=== PATIENT | female | born 1985 | race African-American/Black ===

== ENCOUNTER 2018-09-24 07:00 | Inpatient (IN) ==
[2018-09-24] MEDS ORDERED: FAMOTIDINE 20 MG/2 ML VIAL IV ONE (07:28)
[2018-09-24] MEDS ORDERED: ceFAZolin 2,000 MG in PREMIX 1 EACH IV ONE (07:28)
[2018-09-24] MEDS ORDERED: CITRIC ACID/SODIUM CITRATE 30 ML UDCUP PO ONE (07:28)
[2018-09-24] MEDS: LACTATED RINGERS 1,000 ML IV SCH ×2 (07:30→08:43)
[2018-09-24] MEDS ORDERED: OXYTOCIN 10 UNIT/ML VIAL IM ONE (07:46)
[2018-09-24] MEDS ORDERED: OXYTOCIN 30 UNIT in DEXTROSE 5% LACTATED RINGERS 1,000 ML IV ONE (07:46)
[2018-09-24 07:54] LABS: Basophils % 0.3 % (0.0-0.8); Eosinophils # 0.1 10*3/uL (0.0-0.87); Eosinophils % 1.1 % (0.00-10.9); Hematocrit 32.9 VOL% (35.7-47.0); Hemoglobin 10.4 GM/DL (12.0-16.0); Immature Granulocytes % 1.1 %; Immature Granulocytes Absolute 0.07 #; Lymphocytes # 0.9 10*3/uL (1.4-4.0); Lymphocytes % 14.1 % (21.3-54.2); Mean Corpuscular HGB Conc 31.6 GM/DL (32-36); Mean Corpuscular Hemoglobin 28 PG (27-34); Mean Corpuscular Volume 88.7 FL (87-102); Mean Platelet Volume 10.4 FL (9.6-12.0); Monocytes # 0.7 10*3/uL (0.11-0.8); Monocytes % 11.1 % (1.7-12.7); Neutrophils # 4.5 10*3/uL (1.4-7.4); Neutrophils % 72.3 % (38.7-73.9); Platelet Count 271 T/CUMM (130-400); Red Blood Count 3.71 MC/CUMM (3.8-5.5); Red Cell Distribution Width 14.9 % (9.3-17.3); White Blood Count 6.2 T/CUMM (4-12)
[2018-09-24] MEDS ORDERED: OXYTOCIN/LR 30 UNIT/1,000 ML BAG IV ONE (08:00)
[2018-09-24 10:05] LABS: Barbiturates Screen,Urine Negative (Negative); Benzodiazepines Screen,Urine Negative (Negative); Cannabinoid Screen,Urine Negative (Negative); Opiate Screen,Urine Negative (Negative); Phencyclidine Screen,Urine Negative (Negative)
[2018-09-24 10:09] LABS: Apearance,Urine Slightly Hazy (Clear); Bilirubin,Urine Negative (Negative); Blood, Urine Small mg/dL (Negative); Glucose,Urine (UA) Negative (Negative); Ketones,Urine Negative (Negative); Mucus,Urine Occasional /LPF (Occasional); Nitrite,Urine Negative (Negative); Protein,Urine Negative; RBC,Urine 23 /HPF (0-4); Renal Epithelial Cells,Urine Occasional /HPF (<1); Squamous Epithelial Cell,Urine Occasional /HPF (0-10); Urine Color Yellow (Yellow); Urine Specific Gravity 1.016 (1.001-1.035); Urine Urobilinogen < 2.0 EU/DL (0.2-1.0); WBC,Urine 5 /HPF (0-6)
[2018-09-24] MEDS ORDERED: ACETAMINOPHEN 325 MG TABLET PO PRN (10:12)
[2018-09-24] MEDS ORDERED: ONDANSETRON 4 MG/2 ML VIAL IV PRN (10:12)
[2018-09-24] MEDS ORDERED: SIMETHICONE CHEW 80 MG TABLET PO PRN (10:12)
[2018-09-24] MEDS ORDERED: OXYTOCIN/LR 20 UNIT/1,000 ML BAG IV ONE (10:12)
[2018-09-24] MEDS ORDERED: RHO(D) IMMUNE GLOBULIN 300 MCG SYRINGE IM ONE (10:12)
[2018-09-24] MEDS ORDERED: ceFAZolin 1,000 MG in SYRINGE 1 EACH IV SCH (10:30)
[2018-09-24] MEDS ORDERED: LACTATED RINGERS 1,000 ML IV SCH ×2 (10:30→15:30)
[2018-09-24] MEDS ORDERED: PHENYLEPHRINE 1 MG/10 ML SYRINGE IV ONE (10:43)
[2018-09-24] MEDS ORDERED: ONDANSETRON 4 MG/2 ML VIAL ONE (10:43)
[2018-09-24] MEDS ORDERED: MORPHINE 10 MG/10 ML VIAL ONE (10:43)
[2018-09-24] MEDS ORDERED: diphenhydrAMINE 50 MG/1 ML VIAL IV PRN (12:45)
[2018-09-24] MEDS ORDERED: hydrOXYzine HCL 25 MG/1 ML VIAL IM PRN (15:00)
[2018-09-24] MEDS: ceFAZolin 1,000 MG in SYRINGE 1 EACH IV SCH (16:42)
[2018-09-24 17:39] LABS: Basophils % 0.2 % (0.0-0.8); Eosinophils % 0.3 % (0.00-10.9); Hematocrit 30.2 VOL% (35.7-47.0); Hemoglobin 9.4 GM/DL (12.0-16.0); Immature Granulocytes % 0.6 %; Immature Granulocytes Absolute 0.05 #; Lymphocytes # 0.8 10*3/uL (1.4-4.0); Lymphocytes % 8.8 % (21.3-54.2); Mean Corpuscular HGB Conc 31.1 GM/DL (32-36); Mean Corpuscular Hemoglobin 28 PG (27-34); Mean Corpuscular Volume 90.1 FL (87-102); Mean Platelet Volume 10.3 FL (9.6-12.0); Monocytes # 0.5 10*3/uL (0.11-0.8); Monocytes % 5.1 % (1.7-12.7); Neutrophils # 7.5 10*3/uL (1.4-7.4); Platelet Count 228 T/CUMM (130-400); Red Blood Count 3.35 MC/CUMM (3.8-5.5); Red Cell Distribution Width 14.9 % (9.3-17.3)
[2018-09-24 17:40] LABS: White Blood Count 8.8 T/CUMM (4-12)
[2018-09-25] MEDS: ceFAZolin 1,000 MG in SYRINGE 1 EACH IV SCH (00:19)
[2018-09-25] MEDS: IBUPROFEN 800 MG TABLET PO PRN ×2 (00:28→08:45)
[2018-09-25 06:36] LABS: Basophils % 0.3 % (0.0-0.8); Eosinophils # 0.1 10*3/uL (0.0-0.87); Eosinophils % 1.3 % (0.00-10.9); Hematocrit 29.6 VOL% (35.7-47.0); Hemoglobin 9.1 GM/DL (12.0-16.0); Immature Granulocytes % 0.8 %; Immature Granulocytes Absolute 0.06 #; Lymphocytes # 0.6 10*3/uL (1.4-4.0); Lymphocytes % 8.2 % (21.3-54.2); Mean Corpuscular HGB Conc 30.7 GM/DL (32-36); Mean Corpuscular Hemoglobin 28 PG (27-34); Mean Corpuscular Volume 90.5 FL (87-102); Mean Platelet Volume 10.3 FL (9.6-12.0); Monocytes # 0.6 10*3/uL (0.11-0.8); Monocytes % 7.3 % (1.7-12.7); Neutrophils # 6.2 10*3/uL (1.4-7.4); Neutrophils % 82.1 % (38.7-73.9); Platelet Count 220 T/CUMM (130-400); Red Blood Count 3.27 MC/CUMM (3.8-5.5); Red Cell Distribution Width 14.8 % (9.3-17.3); White Blood Count 7.5 T/CUMM (4-12)
[2018-09-25] MEDS ORDERED: METOCLOPRAMIDE 10 MG TABLET ONE (07:17)
[2018-09-25] MEDS: METOCLOPRAMIDE 10 MG TABLET PO SCH ×3 (07:20→20:58)
[2018-09-25] MEDS: DOCUSATE SODIUM 100 MG CAPSULE PO SCH ×2 (08:43→20:58)
[2018-09-25] MEDS: MULTIVITAMIN (PRENATAL) TABLET PO SCH (08:44)
[2018-09-25] MEDS: MAGNESIUM HYDROXIDE SUSP 30 ML UDCUP PO PRN ×2 (08:44→20:58)
[2018-09-25] MEDS: FERROUS SULFATE 325 MG TABLET PO SCH ×2 (08:44→20:58)
[2018-09-25] MEDS ORDERED: MAGNESIUM CITRATE 300 ML BOTTLE PO ONE (15:36)
[2018-09-26] MEDS: METOCLOPRAMIDE 10 MG TABLET PO SCH ×4 (04:15→21:00)
[2018-09-26] MEDS: IBUPROFEN 800 MG TABLET PO PRN ×2 (06:25→22:00)
[2018-09-26] MEDS: MULTIVITAMIN (PRENATAL) TABLET PO SCH (08:55)
[2018-09-26] MEDS: DOCUSATE SODIUM 100 MG CAPSULE PO SCH ×3 (08:55→21:01)
[2018-09-26] MEDS: FERROUS SULFATE 325 MG TABLET PO SCH ×2 (08:56→21:00)
[2018-09-26] MEDS: BISACODYL 10 MG SUPP RECTAL PRN (11:57)
[2018-09-26] MEDS ORDERED: MAGNESIUM CITRATE 300 ML BOTTLE PO ONE (13:32)
[2018-09-26] MEDS: MAGNESIUM HYDROXIDE SUSP 30 ML UDCUP PO PRN (21:01)
[2018-09-27] MEDS: BISACODYL 10 MG SUPP RECTAL PRN (02:41)
[2018-09-27 08:09] VITALS: BP 149/87
[2018-09-27] MEDS: FERROUS SULFATE 325 MG TABLET PO SCH (09:34)
[2018-09-27] MEDS: DOCUSATE SODIUM 100 MG CAPSULE PO SCH (09:34)
[2018-09-27] MEDS: MULTIVITAMIN (PRENATAL) TABLET PO SCH (09:35)
[2018-09-27] MEDS: IBUPROFEN 800 MG TABLET PO PRN (09:36)
[2018-09-27] MEDS ORDERED: DIPH/TET/ACEL PERT BOOSTER VACCINE 0.5 ML VIAL IM ONE (12:00)
== END 2018-09-27 13:05 | disposition home or self-care (01) | DRG 540 ==
LOC: N.LDOUT 07:00 → N.LD 07:03 → N.OB 12:31
PROVIDERS: ADMIT Obstetrics & Gynecology; ATTEND Obstetrics & Gynecology
PROC: LDCSECT (ICD-10-PCS; 2018-09-24 08:20)